=== PATIENT | female | born 1995 | race Caucasian/White ===

== ENCOUNTER 2018-01-22 07:43 | Inpatient (IN) | payer OTHER ==
[2018-01-22] MEDS ORDERED: DOCUSATE SODIUM 100 MG CAP PO (10:30)
[2018-01-22] MEDS ORDERED: BISACODYL 10 MG SUPP PR (10:30)
[2018-01-22] MEDS ORDERED: ACETAMINOPHEN 650 MG SUPP PR (10:30)
[2018-01-22] MEDS ORDERED: MAGNESIUM HYDROXIDE 30ML CUP PO (10:30)
[2018-01-22] MEDS ORDERED: ONDANSETRON 4 MG INJ IV (10:30)
[2018-01-22] MEDS ORDERED: NACL 0.9% 3 ML SYG IV (10:30)
[2018-01-22] MEDS: HYDROCODONE/APAP (5/325) TAB PO ×2 (11:46→20:20)
[2018-01-22 14:01] LABS: ADD UMIC YES; UR ASCORBIC ACID NEGATIVE (NEGATIVE); UR BACTERIA FEW /HPF (NONE SEEN); UR BILIRUBIN (Dip) NEGATIVE (NEGATIVE); UR BLOOD (Dip) NEGATIVE (NEGATIVE); UR CLARITY CLOUDY (CLEAR); UR COLOR YELLOW (YELLOW); UR GLUCOSE (Dip) NEGATIVE (NEGATIVE); UR KETONES (Dip) NEGATIVE (NEGATIVE); UR LEUKOCYTE ESTERASE (Dip) NEGATIVE Leu/ul (NEGATIVE); UR MUCUS FEW /HPF (NONE SEEN); UR NITRITE (Dip) NEGATIVE (NEGATIVE); UR RBC 1 /HPF (0-5); UR SPECIFIC GRAVITY (Dip) 1.028 (1.003-1.030); UR SQUAMOUS EPITHELIAL CELL FEW /HPF (FEW); UR TOTAL PROTEIN (Dip) NEGATIVE (NEGATIVE); UR UROBILINOGEN (Dip) NEGATIVE (NEGATIVE); UR WBC 6 /HPF (0-5)
[2018-01-22] MEDS ORDERED: HEPARIN 5,000 UNIT/0.5 ML VIAL SC (21:00)
[2018-01-23] MEDS: morphine 2 MG INJ IV ×3 (05:00→17:08)
[2018-01-23 06:03] LABS: ADD MAN DIFF? NO
[2018-01-23] MEDS: PANTOPRAZOLE 40 MG INJ IV (06:08)
[2018-01-23 06:20] LABS: WHITE BLOOD COUNT 10.6 10^3/ul (4.8-10.8)
[2018-01-23 06:20] LABS: BASOPHILS % 0.4 % (0.0-2.0); EOSINOPHILS # 0.3 10^3/ul (0.0-0.5); EOSINOPHILS % 2.9 % (0.0-7.0); HEMATOCRIT 39.5 % (37.0-47.0); HEMOGLOBIN 12.6 g/dl (12.0-16.0); LYMPHOCYTES # 3.6 10^3/ul (0.8-2.9); LYMPHOCYTES % 34.2 % (15.0-51.0); MEAN CORPUSCULAR HEMOGLOBIN 26.8 pg (29.0-33.0); MEAN CORPUSCULAR HGB CONC 31.9 g/dl (32.0-37.0); MEAN PLATELET VOLUME 9.9 fl (7.4-10.4); MONOCYTE # 0.8 10^3/ul (0.3-0.9); MONOCYTES % 7.1 % (0.0-11.0); NEUTROPHIL # 5.8 10^3/ul (1.6-7.5); NEUTROPHILS % 55.1 % (39.0-77.0); PLATELET COUNT 406 10^3/UL (140-415); RED CELL DISTRIBUTION WIDTH 15.8 % (11.5-14.5)
[2018-01-23 06:46] LABS: ALANINE AMINOTRANSFERASE 68 IU/L (13-69); ALBUMIN 3.5 g/dl (3.3-4.9); ALBUMIN/GLOBULIN RATIO 1.12; ALKALINE PHOSPHATASE 61 IU/L (42-121); ANION GAP 11 (8-16); ASPARTATE AMINO TRANSFERASE 29 IU/L (15-46); BILIRUBIN,INDIRECT 0.4 mg/dl (0-1.1); BILIRUBIN,TOTAL 0.4 mg/dl (0.2-1.3); BLOOD UREA NITROGEN 16 mg/dl (7-20); CALCIUM 9.1 mg/dl (8.4-10.2); CARBON DIOXIDE 28 mmol/L (21-31); CHLORIDE 105 mmol/L (97-110); CHOL/HDL RATIO 2.7 RATIO; CHOLESTEROL 138 mg/dl (100-200); CREATININE 0.64 mg/dl (0.44-1.00); GLUCOSE 88 mg/dl (70-220); HDL CHOLESTEROL 51 mg/dl (33-83); LDL CHOLESTEROL,CALCULATED 67 mg/dl; MAGNESIUM 2.2 mg/dl (1.7-2.5); PHOSPHORUS 4.4 mg/dl (2.5-4.9); POTASSIUM 4.3 mmol/L (3.5-5.1); SODIUM 140 mmol/L (135-144); TOTAL PROTEIN 6.6 g/dl (6.1-8.1); TRIGLYCERIDES 99 mg/dl (0-149)
[2018-01-23 06:58] LABS: FREE THYROXINE INDEX (Calc) 2.83 ug/ml (0.65-3.89); T3 UPTAKE 34.1 % (23.5-40.5); T4 (THYROXINE) 8.3 ug/dl (5.5-11.0)
[2018-01-23 08:14] LABS: HEMOGLOBIN A1C 5.8 % (0-5.9)
[2018-01-23] MEDS: HYDROCODONE/APAP (5/325) TAB PO (18:47)
[2018-01-24] MEDS: morphine 2 MG INJ IV ×3 (00:16→21:51)
[2018-01-24] MEDS: PANTOPRAZOLE 40 MG INJ IV (07:03)
[2018-01-24] MEDS: HYDROCODONE/APAP (5/325) TAB PO ×2 (15:44→18:56)
[2018-01-25] MEDS: HYDROCODONE/APAP (5/325) TAB PO ×4 (00:46→21:27)
[2018-01-25 05:23] LABS: ADD MAN DIFF? NO
[2018-01-25 05:31] LABS: BASOPHIL # 0.1 10^3/ul (0.0-0.1); BASOPHILS % 0.5 % (0.0-2.0); EOSINOPHILS # 0.4 10^3/ul (0.0-0.5); EOSINOPHILS % 3.3 % (0.0-7.0); HEMATOCRIT 38.8 % (37.0-47.0); HEMOGLOBIN 12.3 g/dl (12.0-16.0); LYMPHOCYTES # 3.9 10^3/ul (0.8-2.9); LYMPHOCYTES % 31.2 % (15.0-51.0); MEAN CORPUSCULAR HEMOGLOBIN 26.6 pg (29.0-33.0); MEAN CORPUSCULAR HGB CONC 31.7 g/dl (32.0-37.0); MEAN PLATELET VOLUME 9.8 fl (7.4-10.4); MONOCYTE # 0.8 10^3/ul (0.3-0.9); MONOCYTES % 6.5 % (0.0-11.0); NEUTROPHIL # 7.3 10^3/ul (1.6-7.5); NEUTROPHILS % 58.2 % (39.0-77.0); PLATELET COUNT 418 10^3/UL (140-415); RED BLOOD COUNT 4.62 10^6/ul (4.20-5.40); RED CELL DISTRIBUTION WIDTH 15.3 % (11.5-14.5)
[2018-01-25 05:31] LABS: WHITE BLOOD COUNT 12.6 10^3/ul (4.8-10.8)
[2018-01-25 05:51] LABS: MAGNESIUM 2.1 mg/dl (1.7-2.5)
[2018-01-25 06:02] LABS: ANION GAP 12 (8-16); BLOOD UREA NITROGEN 15 mg/dl (7-20); CALCIUM 9.1 mg/dl (8.4-10.2); CARBON DIOXIDE 29 mmol/L (21-31); CHLORIDE 103 mmol/L (97-110); CREATININE 0.64 mg/dl (0.44-1.00); GLUCOSE 94 mg/dl (70-220); POTASSIUM 3.9 mmol/L (3.5-5.1); SODIUM 140 mmol/L (135-144)
[2018-01-25] MEDS: morphine 2 MG INJ IV (06:36)
[2018-01-25] MEDS: PANTOPRAZOLE 40 MG INJ IV (06:36)
[2018-01-25] MEDS ORDERED: VITAMIN A & D 5 GM OINT PACKET TOP (09:31)
[2018-01-25] MEDS: ENOXAPARIN 40 MG/0.4 ML SYG SC (11:30)
[2018-01-25] MEDS: ACETAMINOPHEN 325 MG TAB PO (13:33)
[2018-01-26 05:21] LABS: ADD MAN DIFF? NO
[2018-01-26 05:26] LABS: WHITE BLOOD COUNT 12.5 10^3/ul (4.8-10.8)
[2018-01-26 05:26] LABS: BASOPHIL # 0.1 10^3/ul (0.0-0.1); BASOPHILS % 0.4 % (0.0-2.0); EOSINOPHILS # 0.5 10^3/ul (0.0-0.5); EOSINOPHILS % 4.3 % (0.0-7.0); HEMATOCRIT 37.1 % (37.0-47.0); HEMOGLOBIN 11.8 g/dl (12.0-16.0); LYMPHOCYTES # 3.8 10^3/ul (0.8-2.9); LYMPHOCYTES % 30.5 % (15.0-51.0); MEAN CORPUSCULAR HEMOGLOBIN 26.8 pg (29.0-33.0); MEAN CORPUSCULAR HGB CONC 31.8 g/dl (32.0-37.0); MEAN CORPUSCULAR VOLUME 84.1 fl (82.0-101.0); MEAN PLATELET VOLUME 9.7 fl (7.4-10.4); MONOCYTE # 0.8 10^3/ul (0.3-0.9); MONOCYTES % 6.7 % (0.0-11.0); NEUTROPHIL # 7.2 10^3/ul (1.6-7.5); NEUTROPHILS % 57.5 % (39.0-77.0); PLATELET COUNT 416 10^3/UL (140-415); RED BLOOD COUNT 4.41 10^6/ul (4.20-5.40); RED CELL DISTRIBUTION WIDTH 15.5 % (11.5-14.5)
[2018-01-26 05:38] LABS: ANION GAP 11 (8-16); BLOOD UREA NITROGEN 16 mg/dl (7-20); CALCIUM 8.8 mg/dl (8.4-10.2); CARBON DIOXIDE 28 mmol/L (21-31); CHLORIDE 103 mmol/L (97-110); CREATININE 0.59 mg/dl (0.44-1.00); GLUCOSE 94 mg/dl (70-220); POTASSIUM 3.9 mmol/L (3.5-5.1); SODIUM 138 mmol/L (135-144)
[2018-01-26] MEDS: PANTOPRAZOLE 40 MG INJ IV (05:48)
[2018-01-26 06:01] LABS: MAGNESIUM 2.1 mg/dl (1.7-2.5)
[2018-01-26] MEDS: HYDROCODONE/APAP (5/325) TAB PO ×2 (07:33→14:01)
[2018-01-26] MEDS: ENOXAPARIN 40 MG/0.4 ML SYG SC (08:11)
== END 2018-01-26 17:05 | disposition home health service (06) | DRG 563 ==
LOC: MS1 07:43
DX: S42.322A Displaced transverse fracture of shaft of humerus, left arm, initial encounter for closed fracture (principal); E66.9 Obesity, unspecified; Z68.34 Body mass index [BMI] 34.0-34.9, adult; S44.22XA Injury of radial nerve at upper arm level, left arm, initial encounter; W01.0XXA Fall on same level from slipping, tripping and stumbling without subsequent striking against object, initial encounter; R73.03 Prediabetes
CPT/HCPCS: 73060; 73218-TC; 80048; 80053; 80061; 81001; 83036; 83735; 84100; 84436; 84443; 84479; 84703; 85025; 87040; 87081; 87086; 97116; 97161; 97166; 97530; 97535